=== PATIENT | male | born 1940 | race Caucasian/White ===

== ENCOUNTER 2021-03-25 14:38 | Emergency (ER) | payer OTHER ==
[~2021-03-25 14:38] MED LIST: ALLEGRA ALLERG180 MG PO; ARICEPT5 MG PO; ASPIRIN CHEWABL81 MG PO; CEFUROXIME500 MG PO; COMBIVENT0.074 GM/I INH; DYMISTA NASAL S23 GM; FLOMAX0.4 MG PO; FLONASE 0.05% N16 GM; IPRATROPIUM BRO15 ML; KEFLEX CAP 500500 MG PO; LEVAQUIN750 MG PO; MACROBID 100 M100 MG PO; OMEPRAZOLE20 MG PO; PRINIVIL20 MG PO; PROAIR HFA8.5 GM INH; SINGULAIR10 MG PO; SYNTHROID175 MCG PO; TENORMIN 50 MG50 MG PO; ZOCOR20 MG PO; ZOLOFT50 MG PO
[2021-03-25 15:40] LABS: HEMOGLOBIN 14.4 gm/dl (14.0-17.5); RED BLOOD COUNT 4.55 M/UL (4.20-5.50); WHITE BLOOD COUNT 12.9 K/UL (4.5-11.0)
== END 2021-03-25 18:40 | disposition home or self-care (01) ==
LOC: ER1 14:38
PROVIDERS: Physician Assistant Medical
DX: S51.812A Laceration without foreign body of left forearm, initial encounter (principal); N19 Unspecified kidney failure; E11.22 Type 2 diabetes mellitus with diabetic chronic kidney disease; W18.30XA Fall on same level, unspecified, initial encounter; Y92.002 Bathroom of unspecified non-institutional (private) residence as the place of occurrence of the external cause; Z23 Encounter for immunization
CPT/HCPCS: 12002; 71045; 73090; 80053; 82550; 82553; 83874; 84484; 85025; 90471; 90715; 93005; 99283

== ENCOUNTER → 2021-05-10 | Outpatient (CLI) | payer MEDICARE | LOC: US 14:08 | DX: C73 Malignant neoplasm of thyroid gland (principal); G30.9 Alzheimer's disease, unspecified; I10 Essential (primary) hypertension; E78.5 Hyperlipidemia, unspecified; E78.00 Pure hypercholesterolemia, unspecified; E03.9 Hypothyroidism, unspecified; K21.9 Gastro-esophageal reflux disease without esophagitis; F32.9 Major depressive disorder, single episode, unspecified; N52.9 Male erectile dysfunction, unspecified; D35.02 Benign neoplasm of left adrenal gland; I69.911 Memory deficit following unspecified cerebrovascular disease; E66.3 Overweight; Z79.899 Other long term (current) drug therapy; Z79.890 Hormone replacement therapy; Z91.040 Latex allergy status | CPT/HCPCS: 76536 ==